=== PATIENT | male | born 1980 | race Caucasian/White ===

== ENCOUNTER → 2019-05-09 | Outpatient (CLI) | payer BC ==
--- NOTE | 2019-05-09 15:54 | RAD ---
EXAM: Right knee, 4 views. HISTORY: Pain. COMPARISON: None. FINDINGS: 4 views of the right knee are obtained. There is no fracture, dislocation or subluxation. No joint effusion is seen. IMPRESSION: No acute osseous finding. Electronically signed by: Starr Bass MD (05/09/2019 3:51 PM) [facility]
== END | disposition home or self-care (01) ==
LOC: DXRAD 15:29
PROVIDERS: ATTEND Family Medicine
DX: M25.561 Pain in right knee (principal)
CPT/HCPCS: 73564